=== PATIENT | female | born 1985 | race Asian ===

== ENCOUNTER 2018-05-23 13:27 | Emergency (ER) | payer MEDICAID ==
--- OUTSIDE RECORDS SUMMARY | 2018-05-23 13:34 | XMS REPORT ---
:1985 External Reference #:[id number] Author Organization [facility] Address [address] [place] [address] Phone [phone] Care Team Providers Name Role Phone Nanci Flroes M.D. Primary Care Physician Unavailable Payers Type Date Identification Numbers Payment Provider Subscriber Health Maintenance Policy Number: [id number] [facility] (O) PayID: [id number] [address] [address] [place] [address] Problems Description No Information Social History Type Date Description Comments Smoking Patient has never smoked Allergies, Adverse Reactions, Alerts Date Description Reaction Status Severity Comments 05/14/2018 NKDA active Medications Medication Date Status Form Strength Qnty SIG Indications Ordering Provider Multi Complete Active Capsules daily Unknown 00 Co-Enzyme Q-10 Active Capsules 100mg 2 by Unknown 00 mouth d [place] 3 Active Capsules 1000mg 1 by Unknown 00 mouth twice a day [place] Active Capsules 500mg Unknown 00 Vital Signs Date Vital Result Comment 05/14/2018 Height 64 inches 5'4" Weight 109.00 lb Heart Rate 92 /min BP Systolic 126 mmHg BP Diastolic 76 mmHg O2 % BldC Oximetry 98 % BMI (Body Mass Index) 18.7 kg/m2 Results Description No Information Procedures Description No Information Plan of Care Future Appointment(s):06/11/2018 8:40 am - Nanci Flores MD at [facility]06/04/2018 4:20 pm - Nanci Flores MD at [facility]
[2018-05-23 13:37] VITALS: BP 126/78
--- NOTE | 2018-05-23 13:55 | UC ---
Throat Pain/Nasal Juan HPI - HPI Summary HPI Summary: sore throat cough right ear pain and body aches for 3 days--child also has similar illness - History of Current Complaint Chief Complaint: UCRespiratory Stated Complaint: SORE THROAT Time Seen by Provider: 05/23/18 13:39 Hx Obtained From: Patient Hx Last Menstrual Period: 05/12/18 ?: No Onset/Duration: Lasting Days - 4, Still Present Pain Intensity: 10 Pain Scale Used: 0-10 Numeric Cough: Nonproductive Associated Signs & Symptoms: Positive: Nasal Discharge - Allergies/Home Medications Allergies/Adverse Reactions: Allergies Allergy/AdvReac Type Severity Reaction Status Date / Time No Known Allergies Allergy Verified 05/23/18 13:38 Home Medications: Home Medications NK [No Home Medications Reported] 05/23/18 [History Confirmed 05/23/18] PMH/Surg Hx/FS Hx/Imm Hx Previously Healthy: Yes - Surgical History Surgical History: Yes Surgery Procedure, Year, and Place: c/sec - Family History Known Family History: Positive: None - Social History Occupation: Employed Full-time Lives: With Family Alcohol Use: None Substance Use Type: None Smoking Status (MU): Never Smoked Tobacco Review of Systems All Other Systems Reviewed And Are Negative: Yes Constitutional: Positive: Negative Skin: Positive: Negative Eyes: Positive: Negative ENT: Positive: Sore Throat, Ear Ache, Nasal Discharge Respiratory: Positive: Cough Cardiovascular: Positive: Negative Gastrointestinal: Positive: Negative Genitourinary: Positive: Negative Motor: Positive: Negative Neurovascular: Positive: Negative Musculoskeletal: Positive: Negative Neurological: Positive: Negative Psychological: Positive: Negative Is Patient Immunocompromised?: No Physical Exam Triage Information Reviewed: Yes Appearance: Well-Appearing, No Pain Distress, Well-Nourished Vital Signs: Initial Vital Signs Temp 99.9 F 05/23/18 13:33 Pulse 95 05/23/18 13:33 Resp 18 05/23/18 13:33 BP 126/78 05/23/18 13:33 Pulse Ox 100 05/23/18 13:33 Vital Signs Reviewed: Yes Eye Exam: Normal Eyes: Positive: Conjunctiva Clear ENT Exam: Normal ENT: Positive: Normal ENT inspection, Hearing grossly normal, Pharynx normal, TMs normal, Uvula midline. Negative: Nasal congestion, Trismus, Muffled voice, Hoarse voice, Sinus tenderness Dental Exam: Normal Neck exam: Normal Neck: Positive: Supple, Nontender, No Lymphadenopathy Respiratory Exam: Normal Respiratory: Positive: Chest non-tender, Lungs clear, Normal breath sounds, No respiratory distress, No accessory muscle use Cardiovascular Exam: Normal Cardiovascular: Positive: RRR, No Murmur, Pulses Normal, Brisk Capillary Refill Musculoskeletal Exam: Normal Musculoskeletal: Positive: Strength Intact, ROM Intact, No Edema Neurological Exam: Normal Neurological: Positive: Alert, Muscle Tone Normal Psychological Exam: Normal Skin Exam: Normal Diagnostics - Laboratory Diagnostic Studies Completed/Ordered: RST (-) Throat Pain/Nasal Course/Dx - Course Assessment/Plan: rest increase tylenol ibuprofen otc cough and cold medications - Differential Dx/Diagnosis Provider Diagnoses: viral syndrome, URI Discharge - Sign-Out/Discharge Documenting (check all that apply): Patient Departure All imaging exams completed and their final reports reviewed: No Studies - Discharge Plan Condition: Stable Disposition: HOME Patient Education Materials: Viral Syndrome (ED), Acute Cough (ED) Forms: *Work Release Referrals: [facility] [Outside] - If Needed - Billing Disposition and Condition Condition: STABLE Disposition: Home
== END 2018-05-23 14:18 | disposition home or self-care (01) ==
LOC: UCEAST 13:27
DX: J06.9 Acute upper respiratory infection, unspecified (principal); B34.9 Viral infection, unspecified
CPT/HCPCS: 87651; 99201; G0463